=== PATIENT | female | born 1995 | race Caucasian/White ===

== ENCOUNTER 2017-09-06 12:31 | Emergency (ER) | payer MEDICAID, OTHER ==
--- NOTE | 2017-09-21 08:48 | UC ---
Chan Medina Thomas, scribed for Chela Reardon DO on 09/06/17 at 1339 . Respiratory Complaint HPI - HPI Summary HPI Summary: The pt is a 22 y/o F presenting to [facility] c/o a productive cough for the last five days. The patient is developmentally disabled and her mother supplies most of her history, although the patient answers simple yes/no questions. Pt additionally has chest congestion, sore throat, R ear pain, and insomnia ( secondary to the coughing). The patient has been crying more frequently in the last five days. Pt denies rhinorrhea, dysuria, or any other pains. PMHx includes seizures and an unspecified mood disorder. In the room, the patient refuses to let me inspect her throat. - History of Current Complaint Chief Complaint: UCRespiratory Stated Complaint: COUGH/CONGESTION Time Seen by Provider: 09/06/17 13:27 Hx Obtained From: Patient, Family/Truck Body Builder - Mother (mostly) Hx From Patient Unobtainable Due To: Other - Hx somewhat unobtainable due to developmental disability Hx Last Menstrual Period: 2 weeks ago - control pills Onset/Duration: Lasting Days - 5, Still Present Timing: Constant Severity Currently: Moderate Character: Cough: Productive Aggravating Factors: Nothing Alleviating Factors: Nothing Associated Signs And Symptoms: Negative: Fever - Allergies/Home Medications Allergies/Adverse Reactions: Allergies Allergy/AdvReac Type Severity Reaction Status Date / Time No Known Allergies Allergy Unverified 09/06/17 12:53 PMH/Surg Hx/FS Hx/Imm Hx - Additional Past Medical History Additional PMH: severe developmental delay Previously Healthy: No Neurological History: Seizures Other Psychological History: Developmental disability - Surgical History Surgical History: None - Family History Known Family History: Positive: Cardiac Disease, Hypertension, Diabetes - Social History Alcohol Use: None Substance Use Type: None Smoking Status (MU): Never Smoked Tobacco Household Exposure Type: Cigarettes Review of Systems ENT: Sore Throat - suspected, Ear Ache - Rt, suspected Respiratory: Cough, Other - Chest congestion Neurological: Other - Insomnia (secondary to cough) Is Patient Immunocompromised?: No All Other Systems Reviewed And Are Negative: Yes Physical Exam Triage Information Reviewed: Yes Appearance: Well-Appearing, No Pain Distress, Well-Nourished Vital Signs: Initial Vital Signs Temp 99.4 F 09/06/17 12:48 Pulse 80 09/06/17 12:48 Resp 20 09/06/17 12:48 Pulse Ox 97 09/06/17 12:48 Vital Signs Reviewed: Yes Eyes: Positive: Conjunctiva Clear. Negative: Discharge ENT: Positive: Hearing grossly normal, TM bulging - rt, TM dull, TM red, Other - pt steadfastly refused throat exam. Negative: Muffled voice, Hoarse voice Neck exam: Normal Neck: Positive: Supple Respiratory: Positive: Lungs clear, Normal breath sounds, No respiratory distress, No accessory muscle use Cardiovascular: Positive: RRR, No Murmur Abdomen Description: Positive: Nontender, Soft. Negative: CVA Tenderness (R), CVA Tenderness (L), Distended, Guarding, McBurney's Point Tenderness Bowel Sounds: Positive: Present Musculoskeletal Exam: Normal Neurological: Positive: Alert, Muscle Tone Normal Psychological Exam: Normal Psychological: Positive: Decreased Age Appropriate Behavior, Consolable, Other: - obvious developmental delay Skin Exam: Normal Skin: Positive: Other - Warm, dry, normal color UC Diagnostic Evaluation - Laboratory O2 Sat by Pulse Oximetry: 97 Respiratory Course/Dx - Course Course Of Treatment: Medications reviewed this visit. - Differential Dx/Diagnosis Differential Diagnosis/HQI/PQRI: Bronchitis, Lower Resp Infection, Sinusitis, Other - om, strep throat Provider Diagnoses: sore throat, om Discharge - Discharge Plan Condition: Stable Disposition: HOME Prescriptions: Amoxicillin PO (*) [Amoxicillin 500 MG CAP*] 500 mg PO Q12H #20 cap Benzonatate CAP* [Tessalon 100 MG CAP*] 100 mg PO TID #30 cap guaiFENesin ER TAB [Mucinex*] 600 mg PO BID PRN #1 box PRN Reason: Cough Patient Education Materials: Pharyngitis (ED), Otitis Media (ED) Referrals: Andrzej Lance MD [Primary Care Provider] - Additional Instructions: AMOXICILLIN: Amoxicillin is a member of the penicillin family. It covers the germs likely to cause ear, bronchial, and urinary infections better than plain penicillin. Amoxicillin can be taken without regard to meals. Nausea after taking the medication is rare, but can occur. Diarrhea can occur, particularly in small children. Vaginal yeast infections and oral thrush in infants are also common. Contact your physician if these problems occur. Allergy to penicillins is common. If you have had an allergic reaction to any drug of the penicillin family, you should never take any other penicillin. Notify your doctor at once if you develop hives, itching, swelling, faintness, or shortness of breath. Less serious side effects can include nausea or diarrhea. ANYTIME YOU TAKE AN ANTIBIOTIC, IT IS IMPORTANT TO REPLENISH THE BODY'S SUPPLY OF "GOOD BACTERIA." YOU CAN GET GOOD BACTERIA FROM HIGH QUALITY CULTURED FOODS SUCH LOCAL YOGURT, SOUR KRAUT, RACHEL ALAN, NATURALLY FERMENTED PICKLES AND PROBIOTIC DRINKS. YOU CAN ALSO GET GOOD BACTERIA FROM A PROBIOTIC SUPPLEMENT. EXPECTORANT MEDICATION: WE SENT IN A SCRIPT FOR MUCINEX SO THAT IT IS EASIER FOR YOU TO PICK THE RIGHT MED AT THE PHARMACY. HOWEVER, YOU CAN ALSO GO TO THE [employer] FOOD STORE AND BUY PLAIN GUAIFENESIN WITHOU BINDERS OR FILLERS. An expectorant medicine has been prescribed. This type of drug makes mucous thinner, helping the sinuses, nose, and bronchial tubes to remain free of pus and mucous. Expectorants make a cough less severe and more comfortable, and help infected sinuses drain. In general, antihistamines defeat the purpose of the expectorant by making mucous thicker. They should be avoided unless specifically recommended by your physician. TESSALON PERLES: You have received a prescription for Tessalon Perles (benzonatate). This is a non-narcotic medicine for relief of cough. It usually works in about 15- 20 minutes and lasts around four hours. Tessalon Perles should be swallowed. They should not be chewed or dissolved in the mouth (this can produce temporary numbing of the mouth and choking can occur). If you develop any adverse effects such as wheezing, shortness of breath, hives, rash, itching, or lightheadedness, please return at once. The documentation as recorded by the Chan womack Thomas accurately reflects the service I personally performed and the decisions made by , Chela Reardon DO.
== END 2017-09-06 14:15 | disposition home or self-care (01) ==
LOC: UCEAST 12:31
DX: J02.9 Acute pharyngitis, unspecified (principal); H66.91 Otitis media, unspecified, right ear; R62.50 Unspecified lack of expected normal physiological development in childhood; R56.9 Unspecified convulsions; Z77.22 Contact with and (suspected) exposure to environmental tobacco smoke (acute) (chronic)
CPT/HCPCS: 99202; G0463

== ENCOUNTER 2019-07-25 14:59 | Emergency (ER) | payer MEDICARE, MEDICAID ==
[2019-07-25] MEDS ORDERED: NS 0.9% 1000 ML** 1,000 ML IV ONE (15:56)
[2019-07-25 16:30] LABS: ABS Lymphocytes 1.5 10^3/ul (1.0-4.8); ABS Monocytes 0.4 10^3/ul (0-0.8); ABS Neutrophils 8.1 10^3/ul (1.5-7.7); Eosinophil % 0.1 %; Hematocrit 39 % (35-47); Hemoglobin 12.6 g/dL (12.0-16.0); Mean Corpuscular HGB Conc 33 g/dL (31-36); Mean Corpuscular Hemoglobin 26 pg (27-31); Mean Corpuscular Volume 79 fL (80-97); Mean Platelet Volume 9.8 fL (7.4-10.4); Nucleated Red Blood Cells % 0.1; Platelet Count 245 10^3/uL (150-450); Red Blood Count 4.89 10^6 /uL (3.70-4.87); Red Cell Distribution Width 14 % (10-15)
--- NOTE | 2019-07-25 16:44 | ED ---
Abdominal Pain/Female - HPI Summary HPI Summary: 24 year old female presents to the ED with the chief complaint of abdominal pain. THIS IS A LEVEL 5 CAVEAT; patient is mostly nonverbal and unable to give hx. The pain is rated an 8/10 in severity. According to her mom, she had difficulty ambulating from [place] house, but was able to ambulate to the EMS stretcher. Per the pts mother, she had no vomiting, diarrhea, chest pain, or shortness of breath. She is currently on her period. Per the patient, she has been experiencing nausea, and has had difficulty ambulating. - History of Current Complaint Chief Complaint: EDAbdPain Stated Complaint: ABDOMINAL PAIN PER EMS Time Seen by Provider: 07/25/19 15:10 Hx Obtained From: Patient, Family/In Store Marketing Representative Hx From Patient Unobtainable Due To: Other - Nonverbal Hx Last Menstrual Period: 2 weeks ago - control pills ?: No Onset/Duration: Gradual Onset, Lasting Days, Still Present Severity Initially: Severe Severity Currently: Severe Pain Intensity: 8 Pain Scale Used: 0-10 Numeric Location: Diffuse Associated Signs and Symptoms: Positive: Nausea. Negative: Chest Pain, Vomiting , Diarrhea Allergies/Adverse Reactions: Allergies Allergy/AdvReac Type Severity Reaction Status Date / Time No Known Allergies Allergy Unverified 09/06/17 12:53 Home Medications: Home Medications Escitalopram * [Lexapro 10 mg (NF)] 10 mg PO DAILY 07/25/19 [History Confirmed 07/25/19] Guanfacine ER * (NF) [Guanfacine HCl ER] 2 mg PO BEDTIME 07/25/19 [History Confirmed 07/25/19] Levonorgestrel-Ethin Estradiol [Introvale] 1 tab PO DAILY 07/25/19 [History Confirmed 07/25/19] OXcarbazepine [Oxcarbazepine] 10 ml PO BID 07/25/19 [History Confirmed 07/25/19] busPIRone TAB* [Buspar TAB*] 20 mg PO TID 07/25/19 [History Confirmed 07/25/19] cloNIDine TAB* [Catapres 0.1 MG TAB*] 0.1 mg PO DAILY 07/25/19 [History Confirmed 07/25/19] guanFACINE TAB* [Tenex TAB*] 1 mg PO BID 07/25/19 [History Confirmed 07/25/19] hydrOXYzine HCL TAB* [Atarax 25 MG TAB*] 25 mg PO BEDTIME PRN 07/25/19 [History Confirmed 07/25/19] PMH/Surg Hx/FS Hx/Imm Hx Previously Healthy: Yes Endocrine/Hematology History: Reports: Hx Diabetes Denies: Hx Thyroid Disease Cardiovascular History: Denies: Hx Hypertension Respiratory History: Denies: Hx Asthma, Hx Chronic Obstructive Pulmonary Disease (COPD) GI History: Denies: Hx Ulcer Infectious Disease History: No Infectious Disease History: Denies: Hx Hepatitis, Hx Human Immunodeficiency Virus (HIV), History Other Infectious Disease, Traveled Outside the [place] in Last 30 Days - Family History Known Family History: Positive: Cardiac Disease, Hypertension, Diabetes - Social History Alcohol Use: None Hx Substance Use: No Substance Use Type: Reports: None Hx Tobacco Use: No Smoking Status (MU): Never Smoked Tobacco Review of Systems - ROS Summary Review of Systems Summary: LEVEL 5 CAVEAT: Pt's full hx unobtainable d/t pt being mostly nonverbal. Negative: Chest Pain Negative: Shortness Of Breath Positive: Abdominal Pain, Nausea. Negative: Vomiting, Diarrhea Positive: Other - difficulty ambulating All Other Systems Reviewed And Are Negative: No Physical Exam - Summary Physical Exam Summary: VITAL SIGNS: Reviewed. GENERAL: Patient is a well-developed and nourished female who is lying comfortable in the stretcher. Patient is in distress secondary to pain. Crying. Unable to get a good history. Patient is not in any acute respiratory distress. HEAD AND FACE: Normocephalic and atraumatic. EYES: PERRLA, EOMI x 2, No injected conjunctiva. EARS: Hearing grossly intact. Ear canals and tympanic membranes are WNL. MOUTH: Oropharynx within normal limits. NECK: Supple, trachea is midline, no adenopathy, no JVD. CHEST: Symmetric, no tenderness at palpation. LUNGS: Clear to auscultation bilaterally. No wheezing or crackles. CVS: RRR, S1 and S2 present, no murmurs or gallops appreciated. ABDOMEN: Soft, tender to palpation. No signs of distention. Increased bowel sounds. No rebound, no guarding, and no masses palpated. No abdominal bruit or pulsations. EXTREMITIES: FROM in all major joints, no edema, no cyanosis or clubbing. NEURO: Alert and oriented x 3. No acute neurological deficits. Speech is normal. SKIN: Dry and warm. THIS IS A LEVEL 5 CAVEAT Triage Information Reviewed: Yes Vital Signs On Initial Exam: Initial Vitals Temp Pulse Resp BP Pulse Ox 100.6 F 85 18 142/82 98 07/25/19 15:08 07/25/19 15:08 07/25/19 15:08 07/25/19 15:08 07/25/19 15:08 Vital Signs Reviewed: Yes Completion Of Physical Exam Limited Due To: Level 5, Other - Patient is non- verbal Diagnostics - Vital Signs Vital Signs Temp Pulse Resp BP Pulse Ox 07/25/19 15:08 100.6 F 85 18 142/82 98 - Laboratory Lab Results: Lab Results 07/25/19 Range/Units 16:17 WBC 10.0 (3.5-10.8) 10^3/uL RBC 4.89 H (3.70-4.87) 10^6 /uL Hgb 12.6 (12.0-16.0) g/dL Hct 39 (35-47) % MCV 79 L (80-97) fL MCH 26 L (27-31) pg MCHC 33 (31-36) g/dL RDW 14 (10-15) % Plt Count 245 (150-450) 10^3/uL MPV 9.8 (7.4-10.4) fL Neut % (Auto) 80.6 % Lymph % (Auto) 15.0 % [place] % (Auto) 4.0 % Eos % (Auto) 0.1 % Baso % (Auto) 0.3 % Absolute Neuts (auto) 8.1 H (1.5-7.7) 10^3/ul Absolute Lymphs (auto) 1.5 (1.0-4.8) 10^3/ul Absolute Monos (auto) 0.4 (0-0.8) 10^3/ul Absolute Eos (auto) 0.0 (0-0.6) 10^3/ul Absolute Basos (auto) 0.0 (0-0.2) 10^3/ul Absolute Nucleated RBC 0.0 10^3/ul Nucleated RBC % 0.1 Result Diagrams: 07/25/19 16:17 07/25/19 16:17 Lab Statement: Any lab studies that have been ordered have been reviewed, and results considered in the medical decision making process. - CT CT a/p CT Interpretation Completed By: Radiologist Summary of CT Findings: 1. Hepatosteatosis with probable small region of focal fatty sparing. Non-emergent follow-up liver ultrasound suggested to further exclude a focal liver lesion. 2. Normal appendix documented. 3. Negative for obstructive uropathy. 4. 4.4 cm diameter LEFT ovary lesion while nonspecific most likely representing a hemorrhagic cyst. Pelvic ultrasound suggested for further assessment. ED physician has reviewed this report. Abdominal Pain Fem Course/Dx - Course Course Of Treatment: This patient is a 24-year-old female who presents to the emergency department via ambulance with a chief complaint of having abdominal pain. The patient has a history of learning disability therefore I am unable to obtain a good history from this patient. Blood test results without any significant abnormality except for glucose of 102 and CRP of 15.8. Abdominal and pelvic CT impression: 1. Hepatosteatosis with probable small region of focal fatty sparing. Non Emergency follow-up liver ultrasound suggested to further exclude a focal liver lesion. 2. Normal appendix documented. 3. Negative for obstructive uropathy. 4. 4.4 cm diameter LEFT ovary lesion while nonspecific most likely representing a hemorrhagic cyst. Pelvic ultrasound suggested for further assessment. Patient has not had a pelvic exam therefore unable to perform a transvaginal U/S. Attempted pelvic U/S but because of her body habitus tech reports she is unable to perform the U/S. Patient does not have a an increased WBCs and the CRP is mildly elevated. Mother also declines U /S at this time. Urinalysis is negative for a UTI. At this time I discussed my findings and test results with the patients mother and the will be discharged the patient home with follow-up with PCP. The patients mother understands and agrees. Patient is hemodynamically stable. - Diagnoses Provider Diagnoses: Ovarian cyst, Central abdominal pain Discharge ED - Sign-Out/Discharge Documenting (check all that apply): Patient Departure Patient Received Moderate/Deep Sedation with Procedure: No - Discharge Plan Condition: Stable Disposition: HOME Patient Education Materials: Ovarian Cyst (ED), Acute Abdominal Pain (ED) Referrals: Bob Campbell MD [Primary Care Provider] - Additional Instructions: Please follow up with your primary care provider within the next 2-3 days. Return to the emergency department with any new or worsening symptoms. - Billing Disposition and Condition Condition: STABLE Disposition: Home - Attestation Statements Document Initiated by Scribe: Yes Documenting Scribe: Hillary Pepper Provider For Whom Miguel is Documenting (Include Credential): Dr. Len Ponce MD. Scribe Attestation: I, Hillary Pepper, scribed for Dr. Len Ponce MD. on at 1126. Scribe Documentation Reviewed: Yes Provider Attestation: The documentation as recorded by the scribe, Hillary Pepper accurately reflects the service I personally performed and the decisions made by me, Dr. Len Ponce MD. Status of Scribe Document: Viewed
[2019-07-25 16:48] LABS: ALT 14 U/L (7-52); AST 12 U/L (13-39); Albumin 4.4 g/dL (3.2-5.2); Albumin/Globulin Ratio 1.5 (1-3); Alkaline Phosphatase 86 U/L (34-104); Anion Gap 6 mmol/L (2-11); BUN/Creatinine Ratio 19.1 (8-20); Blood Urea Nitrogen 13 mg/dL (6-24); CO2 Carbon Dioxide 26 mmol/L (22-32); Calcium 9.5 mg/dL (8.6-10.3); Chloride 107 mmol/L (101-111); EGFR African American 127.6 (>60); EGFR Non-African American 105.4 (>60); Globulin 2.9 g/dL (2-4); Glucose 102 mg/dL (70-100); Potassium 4.1 mmol/L (3.5-5.0); Sodium 139 mmol/L (135-145); Total Protein 7.3 g/dL (6.4-8.9)
[2019-07-25] MEDS ORDERED: Iodixanol* (CONTRAST) 320 MG/ML 100 ML SDV IV ONE (16:51)
[2019-07-25 16:53] LABS: HCG Pregnancy < 0.60 mIU/mL
[2019-07-25] MEDS ORDERED: Ketorolac INJ* 30 MG/ML 1 ML VIAL IV ONE (17:52)
[2019-07-25 18:29] LABS: Urine Appearance Clear; Urine Bacteria Absent (Absent); Urine Bilirubin Negative (Negative); Urine Blood 1+ (Negative); Urine Color Yellow; Urine Glucose Negative (Negative); Urine Ketones Negative (Negative); Urine Nitrite Negative (Negative); Urine Protein Negative (Negative); Urine Red Blood Cell Absent (Absent); Urine Specific Gravity > 1.060 (1.010-1.030); Urine Squamous Epithelial Cell Present (Absent); Urine Urobilinogen Negative (Negative); Urine White Blood Cell Absent (Absent)
[2019-07-25 19:05] VITALS: BP 139/85
== END 2019-07-25 19:05 | disposition home or self-care (01) ==
LOC: ED 14:59
DX: N83.202 Unspecified ovarian cyst, left side (principal); R10.9 Unspecified abdominal pain; E11.9 Type 2 diabetes mellitus without complications; Z79.899 Other long term (current) drug therapy
CPT/HCPCS: 36415; 74177; 80053; 81003; 81015; 83605; 83690; 84702; 85025; 86140; 96361; 96374; 99283; J1885; Q9967

== ENCOUNTER 2020-01-02 09:44 | Emergency (ER) | payer MEDICARE, MEDICAID ==
[2020-01-02 09:58] VITALS: BP 129/81
--- NOTE | 2020-01-02 10:26 | UC ---
Abdominal Pain Female HPI - HPI Summary HPI Summary: 24 yo female presents, accompanied by awnings mechanic, with an oral complaint. 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 Pt is largely non-verbal, thus the history if provided by the awnings mechanic with her. She tells me that this morning pt ate a hashbrown and had a normal breakfast. [place] When they got back into the car pt started sticking her tongue out, drooling, and making gag sounds. This lasted <10 seconds and pt did not seem in any distress. Pt resumed normal behavior. This happened again shortly after this first episode. Fork Lift Truck Operator brought pt here for eval. When asked if pt has a sore throat she says "yes". When asked if pt has abdominal pain she says "yes". When asked if she has head pain, she says "yes". When asked if she has foot pain, she says "yes". Pt is responding yes to all ROS questions. Pt apparently had an episode of this in the clinic, but was unwitnessed by our staff. Fork Lift Truck Operator with her states she has never seen pt do this before. Denies fevers, vomiting, resp distress, cough, recent illness. Attempts have been made to contact pt's mother - whom pt lives with, but multiple phone calls have gone unanswered. Fork Lift Truck Operator unsure of pt's medications or allergies. - History of Current Complaint Chief Complaint: UCGeneralIllness Stated Complaint: COUGH DROOLING FEVER Time Seen by Provider: 01/02/20 10:26 Hx Obtained From: Family/Fork Lift Truck Operator Hx From Patient Unobtainable Due To: Altered Mental Status Hx Last Menstrual Period: 2 weeks ago - control pills Severity Initially: Mild Severity Currently: Mild Pain Intensity: 2 Pain Scale Used: 0-10 Numeric Allergies/Adverse Reactions: Allergies Allergy/AdvReac Type Severity Reaction Status Date / Time No Known Allergies Allergy Verified 01/02/20 09:59 Home Medications: Home Medications Escitalopram * [Lexapro 10 mg (NF)] 10 mg PO DAILY 07/25/19 [History Confirmed 07/25/19] Guanfacine ER * (NF) [Guanfacine HCl ER] 2 mg PO BEDTIME 07/25/19 [History Confirmed 07/25/19] Levonorgestrel-Ethin Estradiol [Introvale] 1 tab PO DAILY 07/25/19 [History Confirmed 07/25/19] OXcarbazepine [Oxcarbazepine] 10 ml PO BID 07/25/19 [History Confirmed 07/25/19] busPIRone TAB* [Buspar TAB*] 20 mg PO TID 07/25/19 [History Confirmed 07/25/19] cloNIDine TAB* [Catapres 0.1 MG TAB*] 0.1 mg PO DAILY 07/25/19 [History Confirmed 07/25/19] guanFACINE TAB* [Tenex TAB*] 1 mg PO BID 07/25/19 [History Confirmed 07/25/19] hydrOXYzine HCL TAB* [Atarax 25 MG TAB*] 25 mg PO BEDTIME PRN 07/25/19 [History Confirmed 07/25/19] PMH/Surg Hx/FS Hx/Imm Hx - Additional Past Medical History Additional PMH: Developmental disorder - Surgical History Surgical History: None - Family History Known Family History: Positive: Cardiac Disease, Hypertension, Diabetes - Social History Lives: With Family Alcohol Use: None Substance Use Type: None Smoking Status (MU): Never Smoked Tobacco Household Exposure Type: Cigarettes Review of Systems All Other Systems Reviewed And Are Negative: No Constitutional: Positive: Negative Skin: Positive: Negative Eyes: Positive: Negative ENT: Positive: Sore Throat Respiratory: Positive: Negative Cardiovascular: Positive: Negative Gastrointestinal: Positive: Abdominal Pain Genitourinary: Positive: Negative Neurological/Mental Status: Positive: Negative Psychological: Positive: Negative Physical Exam - Summary Physical Exam Summary: GENERAL: NAD. WDWN. Drinking water without issue. SKIN: No rashes, sores, or open wounds. HEENT: Head: AT/NC Eyes: PERRLA. EOM intact. Conjunctiva clear without inflammation or discharge. Ears: Hearing grossly normal. TMs intact, no bulging, erythema, or edema. Nose: Nasal mucosa pink and moist. NTTP maxillary and frontal sinus. Throat: Posterior oropharynx without exudates, erythema, or tonsillar enlargement. Uvula midline. Airway patent. NECK: Supple. Nontender. No lymphadenopathy. CHEST: CTAB. No r/r/w. No accessory muscle use. Breathing comfortably and in no distress. CV: RRR. Pulses intact. Brisk cap refill. ABDOMEN: Soft. NTTP. No distention or guarding. No CVA tenderness. Bowel sounds present NEURO: Alert. PSYCH: Age appropriate behavior. Triage Information Reviewed: Yes Vital Signs: Initial Vital Signs Temp 99.2 F 01/02/20 09:55 Pulse 92 01/02/20 09:55 Resp 18 01/02/20 09:55 BP 129/81 01/02/20 09:55 Pulse Ox 98 01/02/20 09:55 Laboratory Tests 01/02/20 01/02/20 10:45 10:48 Influenza A (Rapid) Negative Influenza B (Rapid) Negative Group A Strep Rapid Negative Vital Signs Reviewed: Yes Abd Pain Female Course/Dx - Course Course Of Treatment: POC strep and flu negative. Pt was eating crackers and drinking water in the clinic. After about 5minutes of eating crackers - she vomited and had multiple episodes of dry heaves and her tongue remained sticking out of her mouth. No resp distress. Fork Lift Truck Operator states this was the activity pt was doing earlier. Given her vomiting without identifiable cause and unable to obtain history/ROS from the pt - recommend going to the ED for vomiting vs dysphagia vs abdominal pain NOS. I suspect labwork and imaging will need to be completed to rule out an underlying process given pt's very limited communication. - Differential Dx/Diagnosis Provider Diagnosis: Vomiting Discharge ED - Sign-Out/Discharge Documenting (check all that apply): Patient Departure All imaging exams completed and their final reports reviewed: No Studies - Discharge Plan Condition: Stable Disposition: HOME-RECOMMEND TO ED Referrals: Bob Campbell MD [Primary Care Provider] - Additional Instructions: Please take Lucy to the ER for further evaluation of her vomiting - Billing Disposition and Condition Condition: STABLE Disposition: Home-Recommend to ED
[2020-01-02 10:59] LABS: Influenza A Molecular Negative (Negative); Influenza B Molecular Negative (Negative)
== END 2020-01-02 11:32 | disposition home health service (06) ==
LOC: UCEAST 09:44
DX: R11.2 Nausea with vomiting, unspecified (principal); R10.9 Unspecified abdominal pain; J02.9 Acute pharyngitis, unspecified; R51 Headache; E11.9 Type 2 diabetes mellitus without complications; Z88.8 Allergy status to other drugs, medicaments and biological substances
CPT/HCPCS: 87651; 99212; G0463

== ENCOUNTER 2020-01-02 13:06 | Emergency (ER) | payer MEDICARE, MEDICAID ==
--- NOTE | 2020-01-02 13:37 | ED ---
HPI Cardiac - HPI Summary HPI Summary: 24 year old F [facility] accompanied by mother complains of dry heaves and headache since earlier today 01/02/2020 per mother. Patient has an altered resting face, drooling which is unusual, and slight vomiting as well. Patient has no fever or abdominal pain. Symptoms were taken from mother. Patient has a history of delayed development and seizures. Her last known menstrual period was 3 months ago and she has a cyst on her right ovary per mother. The patient is a poor historian. The patient rates the pain 0/10 in severity. Symptoms aggravated by nothing. Symptoms alleviated by nothing. Medications reviewed. Allergies noted. Home Medications Medication Instructions Recorded Confirmed Type Escitalopram * [Lexapro 10 mg (NF)] 10 mg PO DAILY 07/25/19 01/02/20 History Guanfacine ER * (NF) [Guanfacine 2 mg PO BEDTIME 07/25/19 01/02/20 History HCl ER] Levonorgestrel-Ethin Estradiol 1 tab PO DAILY 07/25/19 01/02/20 History [Introvale] OXcarbazepine [Oxcarbazepine] 10 ml PO BID 07/25/19 01/02/20 History busPIRone TAB* [Buspar TAB*] 20 mg PO TID 07/25/19 01/02/20 History cloNIDine TAB* [Catapres 0.1 MG 0.1 mg PO BEDTIME 07/25/19 01/02/20 History TAB*] guanFACINE TAB* [Tenex TAB*] 1 mg PO BID 07/25/19 01/02/20 History hydrOXYzine HCL TAB* [Atarax 25 MG 25 mg PO BEDTIME PRN 07/25/19 01/02/20 History TAB*] Ibuprofen TAB* [Advil TAB*] 200 mg PO Q6H PRN 01/02/20 01/02/20 History - History of Current Complaint Chief Complaint: EDGeneral Stated Complaint: GENERAL ILLNESS PER EMS Time Seen by Provider: 01/02/20 13:14 Hx Obtained From: Family/[employer] - mother Hx From Patient Unobtainable Due To: Other - patient is a poor historian Hx Last Menstrual Period: 2 weeks ago - control pills Onset/Duration: Started Hours Ago, Still Present Initial Severity: Mild Pain Intensity: 0 Pain Scale Used: 0-10 Numeric Aggravating Factor(s): Nothing Alleviating Factor(s): Nothing Associated Signs and Symptoms: Positive: Headaches, Vomiting, Other: - dry heaving, altered resting face, drooling. Negative: Fever, Abdominal Pain - Allergy/Home Medications Allergies/Adverse Reactions: Allergies Allergy/AdvReac Type Severity Reaction Status Date / Time aripiprazole [From [facility]] Allergy Vomiting Verified 01/02/20 13:16 Home Medications: Home Medications Escitalopram * [Lexapro 10 mg (NF)] 10 mg PO DAILY 07/25/19 [History Confirmed 01/02/20] Guanfacine ER * (NF) [Guanfacine HCl ER] 2 mg PO BEDTIME 07/25/19 [History Confirmed 01/02/20] Levonorgestrel-Ethin Estradiol [Introvale 0.15-0.03 mg Tablet] 1 tab PO DAILY [History Confirmed 01/02/20] OXcarbazepine [Oxcarbazepine] 10 ml PO BID 07/25/19 [History Confirmed 01/02/20] busPIRone TAB* [Buspar TAB*] 20 mg PO TID 07/25/19 [History Confirmed 01/02/20] cloNIDine TAB* [Catapres 0.1 MG TAB*] 0.1 mg PO BEDTIME 07/25/19 [History Confirmed 01/02/20] guanFACINE TAB* [Tenex TAB*] 1 mg PO BID 07/25/19 [History Confirmed 01/02/20] hydrOXYzine HCL TAB* [Atarax 25 MG TAB*] 25 mg PO BEDTIME PRN 07/25/19 [History Confirmed 01/02/20] Ibuprofen TAB* [Advil TAB*] 200 mg PO Q6H PRN 01/02/20 [History Confirmed ] Ondansetron ODT TAB* [Zofran 4 MG Odt TAB*] 4 mg PO Q6H PRN #10 tab.odt [Rx] PMH/Surg Hx/FS Hx/Imm Hx Endocrine/Hematology History: Reports: Hx Diabetes - type 2 Denies: Hx Thyroid Disease Cardiovascular History: Denies: Hx Hypertension Respiratory History: Denies: Hx Asthma, Hx Chronic Obstructive Pulmonary Disease (COPD) GI History: Denies: Hx Ulcer Infectious Disease History: No Infectious Disease History: Denies: Hx Hepatitis, Hx Human Immunodeficiency Virus (HIV), History Other Infectious Disease, Traveled Outside the [place] in Last 30 Days - Family History Known Family History: Positive: Cardiac Disease, Hypertension, Diabetes - Social History Alcohol Use: None Hx Substance Use: No Substance Use Type: Reports: None Hx Tobacco Use: No Smoking Status (MU): Never Smoked Tobacco Review of Systems Negative: Fever Positive: Other - dry heaving Positive: Vomiting. Negative: Abdominal Pain Neurological/Mental Status: Other - altered resting face, drooling Positive: Headache All Other Systems Reviewed And Are Negative: Yes Physical Exam - Summary Physical Exam Summary: VITAL SIGNS: Reviewed. GENERAL: Obese female. Patient communicates poorly. HEAD AND FACE: No signs of trauma. No ecchymosis, hematomas or skull depressions. No sinus tenderness. EYES: PERRLA, EOMI x 2, No injected conjunctiva, no nystagmus. EARS: Hearing grossly intact. Ear canals and tympanic membranes are within normal limits. MOUTH: Oropharynx within normal limits. NECK: Supple, trachea is midline, no adenopathy, no JVD, no carotid bruit, no c- spine tenderness, neck with full ROM. CHEST: Symmetric, no tenderness at palpation. LUNGS: Clear to auscultation bilaterally. No wheezing or crackles. CVS: Regular rate and rhythm, S1 and S2 present, no murmurs or gallops appreciated. ABDOMEN: Soft, non-tender. No signs of distention. No rebound, no guarding, and no masses palpated. Bowel sounds are normal. EXTREMITIES: FROM in all major joints, no edema, no cyanosis or clubbing. NEURO: Alert and oriented x 3. No acute neurological deficits. Speech is normal and follows commands. SKIN: Dry and warm. Triage Information Reviewed: Yes Vital Signs On Initial Exam: Initial Vitals Temp Pulse Resp BP Pulse Ox 100.1 F 91 14 125/82 98 01/02/20 13:11 01/02/20 13:11 01/02/20 13:11 01/02/20 13:11 01/02/20 13:11 Vital Signs Reviewed: Yes Procedures - Sedation Patient Received Moderate/Deep Sedation with Procedure: No Diagnostics - Vital Signs Vital Signs Temp Pulse Resp BP Pulse Ox 01/02/20 13:16 92 97 01/02/20 13:15 85 97 01/02/20 13:11 100.1 F 91 14 125/82 98 - Laboratory Result Diagrams: 01/02/20 13:51 01/02/20 13:51 Lab Statement: Any lab studies that have been ordered have been reviewed, and results considered in the medical decision making process. - Radiology Abd x-ray Radiology Interpretation Completed By: Radiologist Summary of Radiographic Findings: IMPRESSION: NONOBSTRUCTIVE BOWEL GAS PATTERN. has reviewed this report. Disposition - Course Assessment/Plan: 24 year old F presenting to [facility] accompanied by mother complains of dry heaves and headache since earlier today 01/02/2020 per mother. Patient has an altered resting face, drooling which is unusual, and slight vomiting as well. Patient has no fever or abdominal pain. Symptoms were taken from mother. Patient has a history of delayed development and seizures. Her last known menstrual period was 3 months ago and she has a cyst on her right ovary per mother. The patient is a poor historian. The patient rates the pain 0/ 10 in severity. Symptoms aggravated by nothing. Symptoms alleviated by nothing. Medications reviewed. Allergies noted. In the ED course the patient was placed in a cardiac nurse specialist, IV access was obtained, IV fluids started. She was given Zofran for nausea. Past medical records reviewed. Blood test w/o a significant abnormality except for CRP 23.1, glucose 101, MCV 79, MCH 26, RDW 16 , absolute neuts 8.2. Urinalysis is contaminated therefore we will send the urine for culture. Influenza A and B are negative. Her rapid strep is negative. Abdominal x-ray impression: Non obstructive bowel gas pattern. Patient has no complaints. She is drinking fluids w/o any nausea or vomiting. I discussed all the findings and test results with the patient. Patient was instructed to return to the emergency room immediately if any of the symptoms return worsens. Plan of care was discussed with the patient and understands and agrees. All questions were answered at patient satisfaction. There were no further complaints or concerns. Lung exam before discharge: CTA B/L. Good air exchange. No wheezing or crackles heard. CVS: S1 and S2 present. No murmurs appreciated. Patient is alert and oriented x 3. Patient is hemodynamically stable. Patient will be discharged home with follow up PCP in the next 2-3 days. - Diagnoses Provider Diagnoses: Nausea Discharge ED - Sign-Out/Discharge Documenting (check all that apply): Patient Departure - discharge - Discharge Plan Condition: Stable Disposition: HOME Prescriptions: Ondansetron ODT TAB* [Zofran 4 MG Odt TAB*] 4 mg PO Q6H PRN #10 tab.odt PRN Reason: Nausea Patient Education Materials: Acute Nausea and Vomiting (ED) Referrals: Bob Campbell MD [Primary Care Provider] - 3 Days Additional Instructions: Please return to emergency department for any new or worsening symptoms. Please follow up with your primary care physician within 1-3 days - Billing Disposition and Condition Condition: STABLE Disposition: Home - Attestation Statements Document Initiated by Scribe: Yes Documenting Scribe: Hu Norman Provider For Whom Miguel is Documenting (Include Credential): Dr.Walter Kris MD Scribe Attestation: Hu Medina scribed for Dr.Walter Kris MD on 01/03/20 at 0724. Scribe Documentation Reviewed: Yes Provider Attestation: The documentation as recorded by the Hu womack accurately reflects the service I personally performed and the decisions made by me, Dr.Walter Kris MD Status of Scribe Document: Viewed
[2020-01-02] MEDS ORDERED: Ondansetron INJ* 2 MG/ML VIAL IV ONE (13:39)
[2020-01-02] MEDS ORDERED: NS 0.9% 1000 ML** 1,000 ML IV SCH (13:45)
[2020-01-02 14:01] LABS: Urine Appearance Cloudy; Urine Bilirubin Negative (Negative); Urine Blood Negative (Negative); Urine Color Amber; Urine Glucose Negative (Negative); Urine Ketones 1+ (Negative); Urine Nitrite Negative (Negative); Urine Protein 1+(30 mg/dL) (Negative); Urine Specific Gravity 1.026 (1.010-1.030); Urine Urobilinogen Negative (Negative)
[2020-01-02 14:03] LABS: ABS Lymphocytes 1.1 10^3/ul (1.0-4.8); ABS Monocytes 0.2 10^3/ul (0-0.8); ABS Neutrophils 8.2 10^3/ul (1.5-7.7); Hematocrit 37 % (35-47); Hemoglobin 12.1 g/dL (12.0-16.0); Lymphocyte % 11.5 %; Mean Corpuscular HGB Conc 33 g/dL (31-36); Mean Corpuscular Hemoglobin 26 pg (27-31); Mean Corpuscular Volume 79 fL (80-97); Mean Platelet Volume 9.9 fL (7.4-10.4); Nucleated Red Blood Cells % 0.1; Platelet Count 244 10^3/uL (150-450); Red Blood Count 4.69 10^6 /uL (3.70-4.87); Red Cell Distribution Width 16 % (10-15); White Blood Count 9.5 10^3/uL (3.5-10.8)
[2020-01-02 14:07] LABS: Rapid Strep Molecular Negative (Negative)
[2020-01-02 14:11] LABS: Urine Bacteria 1+ (Absent); Urine Red Blood Cell 1+(3-5/hpf) (Absent); Urine Squamous Epithelial Cell Present (Absent); Urine White Blood Cell 3+(>20/hpf) (Absent)
[2020-01-02 14:14] LABS: Influenza A Molecular Negative (Negative); Influenza B Molecular Negative (Negative)
[2020-01-02 14:24] LABS: ALT 16 U/L (7-52); AST 13 U/L (13-39); Albumin 4.4 g/dL (3.2-5.2); Albumin/Globulin Ratio 1.5 (1-3); Alkaline Phosphatase 74 U/L (34-104); Anion Gap 9 mmol/L (2-11); BUN/Creatinine Ratio 11.8 (8-20); Blood Urea Nitrogen 8 mg/dL (6-24); C Reactive Protein 23.14 mg/L (<8.01); CO2 Carbon Dioxide 23 mmol/L (22-32); Calcium 9.7 mg/dL (8.6-10.3); Chloride 108 mmol/L (101-111); EGFR African American 127.6 (>60); EGFR Non-African American 105.4 (>60); Glucose 101 mg/dL (70-100); Potassium 3.8 mmol/L (3.5-5.0); Sodium 140 mmol/L (135-145); Total Protein 7.4 g/dL (6.4-8.9)
[2020-01-02 14:30] LABS: HCG Pregnancy < 0.60 mIU/mL
[2020-01-02 15:52] VITALS: BP 115/80
== END 2020-01-02 17:42 | disposition home or self-care (01) ==
LOC: ED 13:06
DX: R11.0 Nausea (principal); R51 Headache; E11.9 Type 2 diabetes mellitus without complications; Z88.8 Allergy status to other drugs, medicaments and biological substances
CPT/HCPCS: 36415; 74019; 80053; 81003; 81015; 84702; 85025; 86140; 87077; 87086; 87186; 87651; 96361; 96374; 99284; J2405